=== PATIENT | male | born 1995 | race Caucasian/White ===

== ENCOUNTER 2020-12-06 12:59 | Emergency (ER) | payer OTHER, SELFPAY ==
[2020-12-06 13:42] VITALS: BP 100/81; PULSE 82; RESP 16; TEMP 37.2; O2SAT 98; BMI 28.1
--- NOTE | 2020-12-06 15:22 | ED.GENADULT ---
HPI - General Adult General Chief complaint: General Medical Stated complaint: Med Refill Time Seen by Provider: 12/06/20 15:10 History of Present Illness HPI narrative: Patient requests refill on medications for PTSD and HIV, he is new to the area in [facility] and has no providing doctor, no infectious disease doctor to follow the HIV and he is otherwise asymptomatic and feels fine, no suicidal thoughts no fevers no thoughts of harm to self or others and not hearing any voices Related Data Previous Rx's Medication Instructions Recorded bictegravir 50 mg-emtricitabine 1 tab PO DAILY #14 tab 12/06/20 200 mg-tenofovir alafenam 25 mg tablet (Biktarvy) hydroxyzine HCl 25 mg tablet 25 mg PO BID #30 tab 12/06/20 hydroxyzine HCl 50 mg tablet 50 mg PO BEDTIME #14 tab 12/06/20 olanzapine 5 mg tablet 5 mg PO BEDTIME #14 tab 12/06/20 prazosin 1 mg capsule 1 mg PO BEDTIME #14 cap 12/06/20 sertraline 100 mg tablet 100 mg PO DAILY #14 tab 12/06/20 Allergies Allergy/AdvReac Type Severity Reaction Status Date / Time No Known Allergies Allergy Verified 12/06/20 14:27 Review of Systems Review of Systems: No fever no chills no headache no neck pain no cough no runny nose no suicidal or homicidal thoughts no thoughts of self-harm not hearing any voices Yes all other systems are reviewed and are negative [facility] Past Medical History Source: nursing notes reviewed Medical History (Updated 12/07/20 @ 00:02 by Background [place]) Anxiety Depression HIV disease PTSD (post-traumatic stress disorder) Social History Social History Advance Directives: No Advance Directives Information Provided: No Physical Exam Vital Signs: Vital Signs: Last Vital Signs Temp 98.9 F 12/06/20 13:42 Pulse 82 12/06/20 13:42 Resp 16 12/06/20 13:42 BP 100/81 12/06/20 13:42 Pulse Ox 98 12/06/20 13:42 Body Mass Index 28.1 General appearance is no acute distress Head is normocephalic atraumatic Neck is supple Respiratory no distress Extremities full range of motion x4 Skin no rash Course Course Course Narrative: I refilled a 2 week supply of his HIV medication and advised that [facility] does have HIV care and advised him to the inquire at [facility] about getting appointment with HIV care at [place], he is also trying to get psychiatric of care appointment Patient is otherwise well and not in any crisis and he is discharged Discharge Plan Discharge Clinical Impression: Medication refill Patient Disposition: Home, Self-Care Additional Instructions: I wrote a 2 week refill for your HIV medication but you need to have a an infectious disease prescribing doctor who knows about side effects and can provide appropriate care so you need to establish that You can try the [facility] [id number] they do take care of HIV patients and usually you can get seen much quicker if you are an HIV patient For psychiatric issues you will need to find a provider Return any time any concerns Prescriptions: New hydroxyzine HCl 25 mg tablet 25 mg PO BID Qty: 30 RF: 0 hydroxyzine HCl 50 mg tablet 50 mg PO BEDTIME Qty: 14 RF: 0 prazosin 1 mg capsule 1 mg PO BEDTIME Qty: 14 RF: 0 sertraline 100 mg tablet 100 mg PO DAILY Qty: 14 RF: 0 Biktarvy 50-200-25 mg tablet 1 tab PO DAILY Qty: 14 RF: 0 olanzapine 5 mg tablet 5 mg PO BEDTIME Qty: 14 RF: 0 Interventions: ED Discharge Assessment Last Done: 12/06/20 15:28 Discharge Date/Time: 12/06/20 15:28
== END 2020-12-06 15:28 | disposition home or self-care (01) ==
PROVIDERS: Emergency Provider Emergency Medicine Emergency Medical Services
DX: Z76.0 Encounter for issue of repeat prescription (principal); Z79.899 Other long term (current) drug therapy
CPT/HCPCS: 99282; 99283